=== PATIENT | female | born 1955 | race Two or more races ===

== ENCOUNTER 2019-03-28 10:20 | Emergency (ER) | payer MEDICAID ==
[~2019-03-28] VITALS: Ht 160 cm; Wt 77.1 kg
[2019-03-28 10:20] VITALS: BP 157/92
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
--- NOTE | 2019-03-28 10:25 | NUR ---
ED Nurse Note: [employer] AT BEDSIDE,INTERVIEWING PT.
[2019-03-28] MEDS ORDERED: Ketorolac 30mg Inj IV ONE (11:15)
--- NOTE | 2019-03-28 12:35 | Diagnostic Imaging Report ---
Indications: Left hip pain Findings: Two views of the left hip were obtained. No acute fracture is demonstrated. Alignment of the hip is within normal limits. Soft tissues are unremarkable. Impression: Negative for acute injury.
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
[2019-03-28] MEDS ORDERED: IBUPROFEN400 M1 PO (12:54)
[2019-03-28] MEDS ORDERED: NORCO 5-325 TA1 EACH ORAL (12:54)
[2019-03-28 13:06] VITALS: BP 148/89
--- NOTE | 2019-03-28 13:07 | NUR ---
ED Nurse Note: Pt cleared by health care Provider for discharge. DC instructions/prescription was given and explained to pt and verbalized understanding of teachings. All medical deviecs such as ID band and IV removed. Pt is AAO x4, ambulatory and left with all personal belongings.
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
== END 2019-03-28 13:08 | disposition home or self-care (01) ==
LOC: EDBD 10:20 → EMR 11:24
DX: S20.219A Contusion of unspecified front wall of thorax, initial encounter (principal); S70.02XA Contusion of left hip, initial encounter; I10 Essential (primary) hypertension; V03.90XA Pedestrian on foot injured in collision with car, pick-up truck or van, unspecified whether traffic or nontraffic accident, initial encounter; Y92.410 Unspecified street and highway as the place of occurrence of the external cause
CPT/HCPCS: 71101; 73510; 96374; J1885; Z7502; 73502; 99284